=== PATIENT | female | born 1985 | race Caucasian/White ===

== ENCOUNTER → 2018-06-07 14:54 | Outpatient (CLI) | payer OTHER, SELFPAY ==
--- NOTE | 2018-06-07 14:58 | RAD_ITS ---
STUDY: X-RAY CHEST REASON FOR EXAM: Female, 32 years old. Cough. Shortness of breath. TECHNIQUE: Frontal and lateral views of the chest COMPARISON: None. FINDINGS: The lungs are clear. There are no pleural effusions. There is no pneumothorax. The heart is normal in size. The visualized osseous structures are within normal limits. RAD/Chest PA and Lateral IMPRESSION: No acute thoracic pathology. Electronically Signed: Filiberto Leary, at 15:15 EST Tel , Service support ,
== END ==
PROVIDERS: Family Provider Family Medicine; PCP Family Medicine; Referring Provider Family Medicine; Visit Provider Family Medicine
DX: R05 Cough (principal)
CPT/HCPCS: 71046

== ENCOUNTER → 2018-06-27 16:48 | Outpatient (CLI) | payer OTHER, SELFPAY ==
[2017-08-28 13:09] VITALS: BMI 25.3
[2018-06-27 17:45] LABS: Absolute Lymphocyte Count 2.44 X10^3/ul (0.83-4.51); Absolute Neutrophil Count 2.8 X10^3/uL (2.0-7.7); Basophil# 0.04 X10^3/uL; Basophil% 0.7 % (0-1); Eosinophil# 0.11 X10^3/uL; Eosinophils% 1.8 % (0-5); Hematocrit 39.2 % (37-47); Hemoglobin 12.7 g/dl (12.0-15.0); Lymphocyte # 2.44 X10^3/ul (4.0); Lymphocyte % 40.1 % (19-41); Mean Corp Hgb Conc 32.4 g/gl (32-36); Mean Corpuscular Hgb 30.7 pg (27.0-32.0); Mean Corpuscular Volume 94.7 fL (81-99); Mean Platelet Vol. 10.3 fl (6.2-12.0); Monocyte# 0.72 X10^3/uL; Monocyte% 11.8 % (0-10); Neutrophil # 2.76 X10^3/uL (2.7-7.7); Neutrophil % 45.4 % (47-70); Platelet Count 225 K/mm3 (150-450); Red Blood Count 4.14 M/mm3 (4.2-5.4); White Blood Count 6.1 K/mm3 (4.4-11.0)
[2018-06-27 18:00] LABS: POSITIVE COUNT NO; POSITIVE DIFFERENTIAL NO; POSITIVE MORPHOLOGY NO
[2018-06-30 19:48] LABS: ANTINUCLEAR ANTIBODIES DIRECT Positive (Negative)
== END ==
PROVIDERS: Family Provider Family Medicine; PCP Family Medicine; Referring Provider Nurse Practitioner Primary Care; Visit Provider Nurse Practitioner Primary Care
DX: D72.819 Decreased white blood cell count, unspecified (principal)
CPT/HCPCS: 36415; 85025; 86038

== ENCOUNTER 2018-11-29 10:17 | Emergency (ER) | payer OTHER, SELFPAY ==
[2018-10-16 15:30] VITALS: BMI 23.6
[2018-11-29 10:19] VITALS: BP 108/68; PULSE 81; RESP 14; TEMP 36.3; O2SAT 98; BMI 24.7
[2018-11-29] MEDS: Fluorescein 1 MG STRIP 1 STRIP RIGHT EYE (11:06)
--- NOTE | 2018-11-29 11:06 | ED.VISSUMM ---
- ER Visit Summary Date of Service: 11/29/18 Chief Complaint: Right eye injury History of Present Illness: The patient is a 33 F who presents with right eye injury that occurred today while at work. 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 Patient states somebody flushed her eye with 10 cc of normal saline immediately. Patient states she continued to work. Patient states that when the surgical case was over she presented to the emergency department for further evaluation of her eye pain. Patient denies any matting or crusting. Patient denies any visual changes. Patient does not wear glasses or contacts. Physical Examination: Vital signs are stable. Patient is afebrile. Patient is in no acute distress. Pupils are equal, round, and reactive to light bilaterally. Extraocular muscles are intact. There is slight conjunctival injection over the lateral aspect of the right eye. There is no crusting. There is no discharge or drainage. There are no foreign bodies noted. Anterior chamber is clear. Cranial nerves II through XII are intact. There are no focal motor or sensory deficits noted. Test Results: Tetracaine and fluorescein dye was applied. There are no corneal abrasions or corneal ulcers noted under slit-lamp examination. Emergency Department Course and Treatment: Tanvir lens was used to irrigate the right eye with normal saline. Patient was instructed to follow-up with her primary care physician in 3-5 days. Patient was instructed to return if worse in any way. Patient understood and was agreeable with the plan. All questions were answered. Disposition: Discharge home Impression: Chemical conjunctivitis right eye This note was generated with [employer] dictation software. It may contain incorrect words, spelling, and punctuation that were not noted in review of the chart prior to signing ED Disposition - Plan for ED Patient: Disposition: Home or Assisted Living Diagnosis: Chemical conjunctivitis of right eye Instructions: ED Chemical Conjunctivitis Referrals: Filiberto Chambers MD [Primary Care Provider] - 3-5 Days
[2018-11-29] MEDS: Tetracaine 0.5% Ophthalmic Bottle 1 DRP RIGHT EYE (11:07)
== END 2018-11-29 12:00 | disposition home or self-care (01) ==
PROVIDERS: Emergency Provider Emergency Medicine; Family Provider Family Medicine; PCP Family Medicine
DX: H10.211 Acute toxic conjunctivitis, right eye (principal); T49.0X1A Poisoning by local antifungal, anti-infective and anti-inflammatory drugs, accidental (unintentional), initial encounter; Y92.234 Operating room of hospital as the place of occurrence of the external cause; Y99.0 Civilian activity done for income or pay
CPT/HCPCS: 99283; J7030

== ENCOUNTER → 2019-02-26 13:54 | Outpatient (CLI) | payer OTHER, SELFPAY ==
--- NOTE | 2019-02-26 13:57 | BI_ITS ---
MAMMOGRAPHY - BILATERAL DIAGNOSTIC REASON FOR EXAM: Female, 33 years old. Left breast lump. PERTINENT HISTORY: Grandmother with breast cancer. TECHNIQUE: Digital bilateral breast kurtis (3D mammographic acquisition) in the CC and MLO projections. 2-D mediolateral oblique (MLO) and craniocaudad (CC) views of both breasts were obtained. CAD: Full Field Digital Mammography with Computer Added Detection was performed. COMPARISON: None. Baseline examination. FINDINGS: Breast Composition: The breasts are extremely dense, which lowers the sensitivity of mammography. There are no dominant masses or suspicious calcifications. No other significant abnormalities are identified. BI/DIAG MAMM W/CAD, BILAT IMPRESSION: Negative diagnostic mammogram. With the patient's history of a palpable abnormality in the left breast, correlation with ultrasound is recommended. ASSESSMENT CATEGORY: BIRADS Category 0: Incomplete. Need additional imaging evaluation. A letter regarding these results will be sent to the patient by the facility within 30 days. Approximately 10% of breast cancers are not detected by mammography. A normal mammogram should not delay biopsy of a clinically suspicious abnormality. Electronically Signed: Chin Denis, at 15:29 EDT , Service support ,
--- NOTE | 2019-02-26 13:58 | US_ITS ---
STUDY: ULTRASOUND BREAST - LEFT REASON FOR EXAM: Female, 33 years old. Palpable lump left breast. Left breast pain. TECHNIQUE: Axial and longitudinal images of the LEFT breast were performed with a high resolution ultrasound transducer. COMPARISON: Comparison is made with prior mammogram done earlier in the day. FINDINGS: LEFT Breast: The axillary region of the left breast was examined. There is a 1.4 cm x 0.7 cm benign-appearing lymph node. There is also evidence of a small benign-appearing lymph node at the 3:00 position of the breast on 1 cm from the nipple. This measures 5 mm x 7 mm x 4 mm. US/Breast Limited Unilateral IMPRESSION: 2 small benign-appearing lymph nodes as described. ASSESSMENT CATEGORY: BIRADS Category 2: Benign. A letter regarding these results will be sent to the patient by the facility within 30 days. Electronically Signed: Chin Denis, at 8:41 EDT , Service support ,
== END ==
PROVIDERS: Family Provider Family Medicine; PCP Family Medicine; Referring Provider Specialist; Visit Provider Specialist
DX: N63.23 Unspecified lump in the left breast, lower outer quadrant (principal)
CPT/HCPCS: 76642; 77062; 77066; G0279

== ENCOUNTER → 2020-02-19 06:41 | Outpatient (CLI) | payer OTHER, SELFPAY ==
[2020-02-19 07:25] LABS: Absolute Lymphocyte Count 2.74 X10^3/uL (0.83-4.51); Absolute Neutrophil Count 3.4 X10^3/uL (2.0-7.7); Basophil# 0.05 X10^3/uL; Basophil% 0.7 % (0-1); Eosinophil# 0.15 X10^3/uL; Eosinophils% 2.1 % (0-5); Hematocrit 41.3 % (37-47); Hemoglobin 13.6 g/dL (12.0-15.0); Lymphocyte # 2.74 X10^3/ul (4.0); Lymphocyte % 39.2 % (19-41); Mean Corp Hgb Conc 32.9 g/dL (32-36); Mean Corpuscular Hgb 31.3 pg (27.0-32.0); Mean Corpuscular Volume 95.2 fL (81-99); Mean Platelet Vol. 10.5 fl (6.2-12.0); Monocyte# 0.68 X10^3/uL; Monocyte% 9.7 % (0-10); NRBC Flagged by Analyzer 0 % (0-5); Neutrophil # 3.36 X10^3/uL (2.7-7.7); Neutrophil % 48.2 % (47-70); Platelet Count 258 K/mm3 (150-450); RBC Distribution Width CV 11.9 % (11.6-14.6); RBC Distribution Width SD 41.6 fl (35.1-43.9); Red Blood Count 4.34 M/mm3 (4.2-5.4)
[2020-02-19 07:55] LABS: ALB/GLOB Ratio 1.1 RATIO (0.9-2.4); AST(SGOT) 15 U/L (15-37); Alanine Aminotransfer ALT/SGPT 17 U/L (13-56); Albumin, Serum 3.8 g/dL (3.2-5.0); Alkaline Phosphatase 48 U/L (45-117); Anion Gap 3 (5-15); BUN 11 mg/dL (7-18); BUN/Creat Ratio 18.8 RATIO (10-20); Calcium,Total 8.4 mg/dL (8.5-10.1); Chloride 104 mmol/L (98-107); Creatinine, Serum 0.58 mg/dL (0.55-1.02); EST Glomerular Filtration Rate 126 mL/min (>60); Est Glom Filt Rate - Afr Amer 152 mL/min (>60); Globulin 3.6 g/dL (2.2-4.2); Glucose 103 mg/dL (74-106); Lipase 73 U/L (73-393); Potassium 3.6 mmol/L (3.5-5.1); Protein, Total 7.4 g/dL (6.4-8.2); Sodium Level 138 mmol/L (136-145)
== END ==
PROVIDERS: PCP Family Medicine; Referring Provider Surgery; Visit Provider Surgery
DX: R10.9 Unspecified abdominal pain (principal)
CPT/HCPCS: 36415; 80053; 83690; 85025

== ENCOUNTER → 2020-02-28 07:53 | Outpatient (CLI) | payer OTHER, SELFPAY ==
--- NOTE | 2020-02-28 07:54 | US_ITS ---
STUDY: ABDOMINAL ULTRASOUND - RIGHT UPPER QUADRANT REASON FOR VISIT: Female, 34 years old ABD PAIN TECHNIQUE: Ultrasound evaluation of the right upper quadrant was performed with real-time and static nieto-scale imaging. TECHNICAL QUALITY: Adequate. COMPARISON: None. FINDINGS: Liver: The liver measures 15.2 cm. There is normal echogenicity of the liver. The bile ducts are within normal limits. There is hepatic color flow. The direction of portal flow is hepatopetal. There is no demonstrated mass lesion. Gallbladder: Normal distended gallbladder. The gallbladder wall measures 3.0 mm. There is a negative sonographic Chin''s sign. There is no pericholecystic fluid. There are no gallstones. Common Bile Duct (C.B.D.): The common bile duct measures 3.0 mm. Pancreas: Normal size of the head, body and tail of the pancreas. There is normal echogenicity of the pancreas. There is no demonstrated pancreatic mass or cyst. Right Kidney: Normal size of the right kidney. The right kidney measures 12.4 cm x 5.1 cm x 4.8 cm. Normal renal cortex. The right cortex measures 1.7 cm. There is no demonstrated renal mass or cyst. There is no right hydronephrosis. US/Gallbladder IMPRESSION: Normal right upper quadrant ultrasound examination. Electronically Signed: Chin Denis, at 12:41 EDT , Service support ,
== END ==
PROVIDERS: PCP Family Medicine; Referring Provider Surgery; Visit Provider Surgery
DX: R10.9 Unspecified abdominal pain (principal)
CPT/HCPCS: 76705

== ENCOUNTER → 2020-03-11 12:25 | Outpatient (CLI) | payer OTHER, SELFPAY ==
--- NOTE | 2020-03-11 12:26 | NM_ITS ---
CLINICAL: 34-year-old female with reported history of right upper quadrant abdominal pain. RADIONUCLIDE HEPATOBILIARY SCINTIGRAPHY COMPARISON: Abdominal ultrasound report 02/28/2020 FINDINGS: Following the intravenous administration of 5.2 mCi of 99m Tc Mebrofenin, hepatobiliary images reveal: 1. Relatively prompt and homogeneous radiopharmaceutical concentration is noted by a normal sized liver. No parenchymal defects are identified. 2. Gallbladder activity is identified at 15 minutes post radiopharmaceutical administration. 3. Small intestinal tract is not visualized during 60 minutes of pre-CCK sequential imaging. Small bowel activity is identified following the administration of cholecystokinin. 4. Washout of the radiopharmaceutical by the hepatic parenchyma appears qualitatively normal. Cholecystokinin (0.02 ug/kg) was administered intravenously over a 30-minute period. The post CCK gallbladder ejection fraction calculated at 20 minutes following Cholecystokinin administration was noted to be 72.0 % (normal greater than 35%). During 30 minutes of post CCK imaging, there is no scintigraphic evidence of reflux of the radiotracer into the common hepatic duct or refilling of the gallbladder. UT/Hepatobilliary Img w/Pharm Int IMPRESSION: 1. NORMAL 99m Tc Mebrofenin hepatobiliary imaging examination with Cholecystokinin. A. A gallbladder ejection fraction calculated to be greater than 35% following the administration of Cholecystokinin makes the probability of functional hepatobiliary disease (gallbladder and/or sphincter of Oddi dyskinesia) and/or organic hepatobiliary disease (chronic acalculous cholecystitis and/or cystic duct syndrome) to be low. (Michaela Weathers et al, Journal of Nuclear Medicine 32:1695, 1991). Electronically Signed: Alex Núñez DO at 22:35 EDT Tel , Service support ,
== END ==
PROVIDERS: PCP Family Medicine; Referring Provider Surgery; Visit Provider Surgery
DX: R10.11 Right upper quadrant pain (principal)
CPT/HCPCS: 78227; A9537; J2805

== ENCOUNTER 2020-03-26 05:23 | Day surgery (SDC) | payer OTHER, SELFPAY ==
[2020-03-23 05:51] VITALS: BMI 24.4
[2020-03-26] VITALS (8 sets, daily range): BP systolic 81–112; BP diastolic 49–75; PULSE 70–87; RESP 16–18; TEMP 36.5–36.9; O2SAT 95–100; BMI 25.6
[2020-03-26 05:51] LABS: Internal QC Validated? YES +Cl - CLEAR BKGD; Pregnancy, Urine Negative Negative
--- NOTE | 2020-03-26 05:52 | HP.PCM_ITS ---
Problem List (1) Heartburn Status: Acute History and Physical Date of Admission: 03/26/20 Intake Visit Reasons: RUQ PAIN Allergies No Known Allergies Allergy (Verified 03/23/20 07:40) Medications doxycycline hyclate 50 mg tablet 50 mg PO DAILY 03/23/20 [History Confirmed 03/23/20] [facility] Medical History (Updated 03/23/20 @ 08:[address] Juan Jackson MD) Heartburn (Acute) Postprandial abdominal pain in right upper quadrant (Acute) Chronic left shoulder pain (Chronic) of child (Acute) Surgical History (Updated 08/28/17 @ 13:11 by Gabriela Martinez) H/O arthroscopy (Acute) Family History (Updated 03/23/20 @ 07:40 by Melida Gardiner) Grandmother Hypertension Heart disease Diabetes Mother Thyroid disorder Other CVA (cerebral vascular accident) Social History (Updated 03/23/20 @ 08:[address] Juan Jackson MD) Smoking Status: Never smoker alcohol intake: current alcohol intake frequency: a few times a week HPI HPI HPI: CAMILLA WONG, is a 34 F who presents to the office today for surgical evaluation of problems with epigastric pain and postprandial nausea feeling of unwellness bloating burping gas. For longer than a year she has had problems with postprandial discomfort and generalized feeling of unwellness. About 1 year ago she had an episode of a feeling of globus sensation. She took omeprazole for about 2 months and that problem resolved. She is not currently on omeprazole. She does get feeling of indigestion or heartburn. She thought maybe she was lactose intolerant so she quit milk but she still eats yogurt. Red sauce can be a problem for her. Because of the epigastric right upper quadrant nature of the discomfort a gallbladder ultrasound was obtained. As noted below that was normal. A hepatobiliary scan was obtained with an ejection fraction of 72%. It is of note however that the patient did experience nausea after injection of the CCK. There is no fever or chills there is no shortness of breath no chest pain no nausea vomiting. The patient will intermittently have some loose stools depending on upon what she eats. She did have laboratory obtained on February 19, 2020. CBC was normal. Complete metabolic profile was normal. Lipase was normal. She does consume significant amount of Tums. She utilizes it weekly. This is for heartburn and reflux-like symptoms. She states that used to be pretty consistent and relieve her problems. Now less so. 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 However her symptoms started well before the ini tiation of the doxycycline and she has not noticed any particular acceleration since its use Gall Bladder Ultrasound [facility] [address] [place] [address] Gallbladder MR#: [id number] Name: CAMILLA WONG #:[id number] : 1985F 34 From: Chin Denis MD PCP:Dr. Filiberto Chambers MD Status:REG CLI Study:Gallbladder Date of Exam:02/28/20 Exam#[id number] Ordering Dr: Juan Jackson MD STUDY: ABDOMINAL ULTRASOUND - RIGHT UPPER QUADRANT REASON FOR VISIT: Female, 34 years old ABD PAIN TECHNIQUE: Ultrasound evaluation of the right upper quadrant was performed with real-time and static nieto-scale imaging. TECHNICAL QUALITY: Adequate. COMPARISON: None. FINDINGS: Liver: The liver measures 15.2 cm. There is normal echogenicity of the liver. The bile ducts are within normal limits. There is hepatic color flow. The direction of portal flow is hepatopetal. There is no demonstrated mass lesion. Gallbladder: Normal distended gallbladder. The gallbladder wall measures 3.0 mm. There is a negative sonographic Chin''s sign. There is no pericholecystic fluid. There are no gallstones. Common Bile Duct (C.B.D.): The common bile duct measures 3.0 mm. Pancreas: Normal size of the head, body and tail of the pancreas. There is normal echogenicity of the pancreas. There is no demonstrated pancreatic mass or cyst. Right Kidney: Normal size of the right kidney. The right kidney measures 12.4 cm x 5.1 cm x 4.8 cm. Normal renal cortex. The right cortex measures 1.7 cm. There is no demonstrated renal mass or cyst. There is no right hydronephrosis. US/Gallbladder IMPRESSION: Normal right upper quadrant ultrasound examination. Electronically Signed: Chin Denis, at 12:41 EDT , Service support , [facility] [address] [place] [id number] Hepatobilliary Img w/Pharm Int MR#: [id number] Name: CAMILLA WONG #:[id number] : 1985F 34 From: Alex Núñez DO PCP:Dr. Filiberto Chambers MD Status:[facility] CLI Study:Hepatobilliary Img w/Pharm Int Date of Exam:03/11/20 Exam#[id number] Ordering Dr: Juan Jackson MD CLINICAL: 34-year-old female with reported history of right upper quadrant abdominal pain. RADIONUCLIDE HEPATOBILIARY SCINTIGRAPHY COMPARISON: Abdominal ultrasound report 02/28/2020 FINDINGS: Following the intravenous administration of 5.2 mCi of 99m Tc Mebrofenin, hepatobiliary images reveal: 1. Relatively prompt and homogeneous radiopharmaceutical concentration is noted by a normal sized liver. No parenchymal defects are identified. 2. Gallbladder activity is identified at 15 minutes post radiopharmaceutical administration. 3. Small intestinal tract is not visualized during 60 minutes of pre-CCK sequential imaging. Small bowel activity is identified following the administration of cholecystokinin. 4. Washout of the radiopharmaceutical by the hepatic parenchyma appears qualitatively normal. Cholecystokinin (0.02 ug/kg) was administered intravenously over a 30-minute period. The post CCK gallbladder ejection fraction calculated at 20 minutes following Cholecystokinin administration was noted to be 72.0 % (normal greater than 35%). During 30 minutes of post CCK imaging, there is no scintigraphic evidence of reflux of the radiotracer into the common hepatic duct or refilling of the gallbladder. NM/Hepatobilliary Img w/Pharm Int IMPRESSION: 1. NORMAL 99m Tc Mebrofenin hepatobiliary imaging examination with Cholecystokinin. A. A gallbladder ejection fraction calculated to be greater than 35% following the administration of Cholecystokinin makes the probability of functional hepatobiliary disease (gallbladder and/or sphincter of Oddi dyskinesia) and/or organic hepatobiliary disease (chronic acalculous cholecystitis and/or cystic duct syndrome) to be low. (Michaela Weathers et al, Journal of Nuclear Medicine 32:1695, 1990). Electronically Signed: Alex DO [place] at 22:35 EDT Tel , Service support , HPI HPI HPI: CAMILLA WONG, is a 34 F who presents to the office today for Exam Const General: cooperative, healthy appearing, comfortable Nutritional Appearance: average body habitus Orientation: alert, awake HENMT Head: normal to inspection Eyes General: appearance normal, both eyes and all related structures Resp Effort & Inspection: normal respiratory effort Auscultation: clear to auscultation bilaterally Cardio Rate: regular rate Rhythm: regular rhythm GI Palpation: soft, no hepatosplenomegaly Auscultation: normal bowel sounds Musc Cervical Spine: normal cervical lordosis Neuro General: alert, awake Extrem General: no calf tenderness Psych Affect: normal affect Assessment & Plan Problems 1. Postprandial abdominal pain in right upper quadrant R10.11 2. Heartburn R12 Plan Postprandial abdominal pain and heartburn of undetermined etiology. As noted gallbladder ultrasound and hepatobiliary scan not remarkable and laboratory not remarkable. Some improvement with using Tums. I recommend a esophagogastroduodenoscopy with biopsy. I anticipate sampling the duodenum loo rick for possible celiac disease. I would anticipate inspecting for possible H. pylori and also eosinophilic esophagitis. She is aware of the technique, benefit, risk, alternatives. She has had an opportunity to ask and have questions answered. We will schedule and proceed at her discretion. I very much appreciate the opportunity of assisting with her surgical care. Copy: Dr. Filiberto Jackson M.D., F.A.C.S. Orders Orders: EGD Today Coding Level of Care Code Off vis,new,level 2 Diagnoses Postprandial abdominal pain in right upper quadrant R10.11 Heartburn R12 I have re-examined the patient. There are no clinical changes since date of exam. Procedure Criteria Procedure Type: Elective COVID Risk Discussion: The surgeon/proceduralist and patient have discussed in detail the risk of exposure to and/or potential harm posed by the COVID-19 virus with having a surgery/procedure at this time versus the risk of delaying the surgery/procedure. It is not possible to know either the risk of delaying the surgery or procedure or chance of getting an infection with perfect accuracy, but a joint decision was made between the patient and the surgeon/proceduralist to proceed at this time with the scheduled surgery/procedure as indicated on the consent form.
[2020-03-26] MEDS: Lactated Ringers 1,000 ML 75 ML IV (06:13)
--- NOTE | 2020-03-26 06:30 | IMM_PTH ---
PATIENT: CAMILLA GARCIA LOC: EN U#:[id number] AGE/SX: 34/F ROOM: RE03/26/[address]: Dr. Juan Jackson MD : 1985 BED: DIS: 03/26/2020 SPEC #: [id number] RECD: 03/26/20 10:17 STATUS: LIZZIE ELEONORA #: [id number] ROSHNI: 03/26/20 06:[address]: Juan Jackson DEPT: IMMUNOHISTOCHEMISTRY RECD BY: Izzy Tucker ENTERED: 03/26/20 10:17 SP TYPE: IMMUNO OTHR DR: Dr. Filiberto Chambers MD Tissues: B - Stomach, NOS Procedures: H Pylori (initial) PHYSICIAN & INSTITUTION [place] [address] SPECIMEN INFORMATION: Tissue Source: B - Antrum biopsy Clinical Info: RUQ pain, heartburn Specimen Number: [id number] CPT code: 25977 METHODOLOGY: Deparaffinized sections of prefer/formalin-fixed tissue or PAP/DQ stained slides are incubated with monoclonal/polyclonal antibodies/oligonucleotide probes. Localization is made via biotin free immunoperoxidase method. Appropriate controls are performed and reacted as expected. Results on target cell population are indicated in the following table: RESULTS: ANTIBODY / CLONE RESULT Block B H Pylori (polyclonal) negative These tests were developed and their performance characteristics determined by [facility]. They may not have been cleared or approved by the U.S. Food and Drug Administration. The FDA has determined that such clearance or approval is not necessary. INTERPRETATION: B. Antrum, biopsy: Negative for Helicobacter pylori organisms. SJ:abdiaziz 03/27/20
--- NOTE | 2020-03-26 06:30 | COLBX_PTH ---
PATIENT: CAMILLA GARCIA LOC: EN U#:[id number] AGE/SX: 34/F ROOM: RE03/26/[address]: Dr. Juan Jackson MD : 1985 BED: DIS: 03/26/2020 SPEC #: [id number] RECD: 03/26/20 08:46 STATUS: LIZZIE CREWS #: [id number] ROSHNI: 03/26/20 06:[address]: Juan Jackson DEPT: SURGICAL PATHOLOGY RECD BY: Carlos Alberto Hayward ENTERED: 03/26/20 09:45 SP TYPE: COLON BX OTHR DR: Dr. Filiberto Chambers MD Tissues: A - Duodenum, NOS B - Gastric mucous membrane C - Esophagus, NOS D - Esophagus, NOS Procedures: Special Stain Group II Surgery Specimen Level IV Alcian Blue/PAS (control) HEADER OPERATION: EGD ([facility]) PRE-OP DIAGNOSIS: RUQ pain, heartburn TISSUE SUBMITTED: A - Duodenum biopsy, B - Antrum biopsy for histo and H. pylori, C - Distal esophagus biopsy, D - Mid esophagus biopsy MICROSCOPIC DIAGNOSIS A. Duodenum, biopsy: Fragments of duodenal mucosa with mild nonspecific chronic inflammation and mild Juwan gland hyperplasia. B. Antrum, biopsy: Mild gastritis. See microscopic description and comment. C. Distal esophagus, biopsy: Fragments of gastroesophageal mucosa with mild chronic inflammation. Intestinal metaplasia (goblet cell metaplasia) is not identified. See comment. D. Mid esophagus, biopsy: A fragment of squamous epithelium, no pathologic diagnosis. SJ:abdiaziz 03/27/20 COMMENT B. The results of immunohistochemistry for Helicobacter pylori will be reported separately ([id number]). C. Alcian blue/PAS stain with matched control is used in the evaluation of the specimen. MICROSCOPIC DESCRIPTION Slides are reviewed. B. The specimen shows fragments of gastric mucosa with chronic inflammatory cell infiltrates in the lamina propria consisting of lymphocytes and plasma cells, consistent with mild chronic gastritis. GROSS DESCRIPTION A - Received in fixative is one container labeled with the patient's name and designated duodenum biopsy. The specimen consists of multiple irregular fragments of light tovar soft tissue that in aggregate measure 1 x 0.6 x 0.1 cm. The specimen is totally submitted in one cassette. B - Received in fixative is one container labeled with the patient's name and designated antrum biopsy. The specimen consists of one irregular fragment of light tovar soft tissue that measures 0.3 x 0.3 x 0.1 cm. The specimen is totally submitted in one cassette. C - Received in fixative is one container labeled with the patient's name and designated distal esophagus biopsy. The specimen consists of two irregular fragments of light tovar soft tissue that in aggregate measure 0.5 x 0.3 x 0.1 cm. The specimen is totally submitted in one cassette. D - Received in fixative is one container labeled with the patient's name and designated mid esophagus biopsy. The specimen consists of one irregular fragment of light tovar soft tissue that measures 0.7 x 0.3 x <0.1 cm. The specimen is totally submitted in one cassette. / AM:abdiaziz 03/26/20 TC:3 CPT: 41928 x4, [id number]
--- NOTE | 2020-03-26 06:49 | OP.CCLET_ITS ---
03/26/2020 Filiberto Chambers Re : Upper GI endoscopy procedure for Nithya Nguyễn Dear Reyes This procedure was performed on March. My impressions and recommendations are as follows: Impressions : - Z-line variable, 39 cm from the incisors.Very mininimal esophagitis Biopsied. - Normal mid esophagus. Biopsied. - 1 cm hiatal hernia. - Erythematous mucosa in the antrum--very, very mild. Biopsied. - Normal examined duodenum. Biopsied. Recommendations : - Discharge patient to home. - Resume previous diet. - Continue present medications. - Telephone my office for pathology results in 1 week. Small hiatal hernia, slight variability of Z-line (esophagogastric junction); No overwhelming findings. Will alwait pathology. Consider repeat PPI or possibly Dexilant therapy My findings are described in the full procedure note, which is enclosed. If I can be of further assistance, please feel free to contact me at Doctor phone number(s): Work: . Sincerely, Juan Jackson MD 03/26/2020 6:49:04 AM This report has been signed electronically.
--- NOTE | 2020-03-26 06:49 | OP.EGD_ITS ---
Patient Name: Nithya Nguyễn Procedure Date: 03/26/2020 6:10 AM Date of : 1985 Age: 34 Procedure: Upper GI endoscopy Indications: Epigastric abdominal pain, Heartburn Providers: Juan Jackson MD Referring MD: Filiberto Chambers Medicines: See the Anesthesia note for documentation of the administered medications Complications: No immediate complications. Procedure: Pre-Anesthesia Assessment: - Prior to the procedure, a History and Physical was performed, and patient medications and allergies were reviewed. The patient's tolerance of previous anesthesia was also reviewed. The risks and benefits of the procedure and the sedation options and risks were discussed with the patient. All questions were answered, and informed consent was obtained. Prior Anticoagulants: The patient has taken no previous anticoagulant or antiplatelet agents. ASA Grade Assessment: I - A normal, healthy patient. After reviewing the risks and benefits, the patient was deemed in satisfactory condition to undergo the procedure. After obtaining informed consent, the endoscope was passed under direct vision. Throughout the procedure, the patient's blood pressure, pulse, and oxygen saturations were monitored continuously. The Endoscope was introduced through the mouth, and advanced to the second part of duodenum. The upper GI endoscopy was accomplished without difficulty. The patient tolerated the procedure well. Scope In: 6:32:45 AM Scope Out: 6:40:02 AM Total Procedure Duration Time 0 hours 7 minutes 17 seconds Findings: The Z-line was variable and was found 39 cm from the incisors. Biopsies were taken with a cold forceps for histology. The mid esophagus was normal. Biopsies were taken with a cold forceps for histology. A 1 cm hiatal hernia was present. Diffuse mildly erythematous mucosa without bleeding was found in the gastric antrum. Biopsies were taken with a cold forceps for histology. The examined duodenum was normal. Biopsies were taken with a cold forceps for histology. Impression: - Z-line variable, 39 cm from the incisors.Very mininimal esophagitis Biopsied. - Normal mid esophagus. Biopsied. - 1 cm hiatal hernia. - Erythematous mucosa in the antrum--very, very mild. Biopsied. - Normal examined duodenum. Biopsied. Recommendation: - Discharge patient to home. - Resume previous diet. - Continue present medications. - Telephone my office for pathology results in 1 week. Small hiatal hernia, slight variability of Z-line (esophagogastric junction); No overwhelming findings. Will alwait pathology. Consider repeat PPI or possibly Dexilant therapy Procedure Code(s): --- Professional --- 16343, Esophagogastroduodenoscopy, flexible, transoral; with biopsy, single or multiple Diagnosis Code(s): --- Professional --- K22.8, Other specified diseases of esophagus K44.9, Diaphragmatic hernia without obstruction or gangrene K31.89, Other diseases of stomach and duodenum R10.13, Epigastric pain R12, Heartburn CPT copyright 2017 [employer]. All rights reserved. The codes documented in this report are preliminary and upon pilot plant research technician review may be revised to meet current compliance requirements. Juan Jackson MD 03/26/2020 6:49:04 AM This report has been signed electronically. Number of Addenda: 0 Note Initiated On: 03/26/2020 6:10 AM
== END 2020-03-26 07:45 | disposition home or self-care (01) ==
LOC: EN 05:23 → AC 05:23
PROVIDERS: Anesthesiology; PCP Family Medicine; Referring Provider Family Medicine; Visit Provider Surgery
PROC: 0DJ08ZZ Inspection of Upper Intestinal Tract, Via Natural or Artificial Opening Endoscopic (ICD-10-PCS; CPT 43235; principal; 2020-03-26 06:25)
DX: K29.70 Gastritis, unspecified, without bleeding (principal); K20.90 Esophagitis, unspecified without bleeding; K44.9 Diaphragmatic hernia without obstruction or gangrene; Z11.59 Encounter for screening for other viral diseases
CPT/HCPCS: 43239; 81025; 87635; 88305; 88313; 88342; C9803; J7120; J2405; U0003

== ENCOUNTER → 2021-01-05 | Outpatient (CLI) | payer OTHER, SELFPAY ==
[2020-03-26 05:47] VITALS: BMI 25.6
== END | disposition home or self-care (01) ==
PROVIDERS: PCP Family Medicine
DX: R19.7 Diarrhea, unspecified (principal)
CPT/HCPCS: 83630; 87493; 87506

== ENCOUNTER → 2021-01-08 06:41 | Outpatient (CLI) | payer OTHER, SELFPAY ==
[2021-01-07 12:11] VITALS: BMI 25.6
[2021-01-08 08:03] LABS: ALB/GLOB Ratio 1.1 RATIO (0.9-2.4); AST(SGOT) 19 U/L (15-37); Alanine Aminotransfer ALT/SGPT 26 U/L (13-56); Albumin, Serum 3.7 g/dL (3.2-5.0); Alkaline Phosphatase 40 U/L (45-117); Anion Gap 8 (5-15); BUN 10 mg/dL (7-18); BUN/Creat Ratio 16.3 RATIO (10-20); Calcium,Total 8.3 mg/dL (8.5-10.1); Chloride 104 mmol/L (98-107); Creatinine, Serum 0.61 mg/dL (0.55-1.02); EST Glomerular Filtration Rate 119 mL/min (>60); Est Glom Filt Rate - Afr Amer 143 mL/min (>60); Globulin 3.3 g/dL (2.2-4.2); Glucose 92 mg/dL (74-106); Lipase 56 U/L (73-393); Sodium Level 138 mmol/L (136-145)
[2021-01-08 08:08] LABS: Hematocrit 40.9 % (37-47); Hemoglobin 13.7 g/dL (12.0-15.0); Red Blood Count 4.46 M/mm3 (4.2-5.4); White Blood Count 5.9 K/mm3 (4.4-11.0)
[2021-01-08 08:09] LABS: Basophil% 0.9 % (0-1); Eosinophils% 1.7 % (0-5); Lymphocyte % 35.4 % (19-41); Mean Corp Hgb Conc 33.5 g/dL (32-36); Mean Corpuscular Hgb 30.7 pg (27.0-32.0); Mean Corpuscular Volume 91.7 fL (81-99); Mean Platelet Vol. 10.2 fl (6.2-12.0); Monocyte% 13.3 % (0-10); Neutrophil % 48.7 % (47-70); Platelet Count 257 K/mm3 (150-450); RBC Distribution Width CV 12.2 % (11.6-14.6); RBC Distribution Width SD 41.2 fl (35.1-43.9)
[2021-01-08 08:10] LABS: Absolute Lymphocyte Count 2.07 X10^3/uL (0.83-4.51); Absolute Neutrophil Count 2.9 X10^3/uL (2.0-7.7); Lymphocyte # 2.07 X10^3/ul (0.83-4.51)
[2021-01-10 16:07] LABS: Endomysial Antibody IgA Negative (Negative)
[2021-01-11 07:25] LABS: Immunoglobulin A 144 mg/dL (87-352); t-Transglutaminase IgA <2 U/mL (0-3)
[2021-01-12 21:27] LABS: Fats, Neutral Normal (.); Fats, Total Normal (.)
== END ==
PROVIDERS: PCP Family Medicine; Referring Provider Surgery; Visit Provider Surgery
DX: R19.7 Diarrhea, unspecified (principal)
CPT/HCPCS: 36415; 80053; 82705; 82784; 83516; 83690; 85025; 86255

== ENCOUNTER → 2021-03-31 | Outpatient (CLI) | payer OTHER, SELFPAY ==
[2021-03-31 21:31] LABS: Probe Check PASS; Specimen Processing Control PASS
== END | disposition home or self-care (01) ==
PROVIDERS: PCP Family Medicine; Referring Provider Internal Medicine Infectious Disease; Visit Provider Internal Medicine Infectious Disease
DX: U07.1 COVID-19 (principal)
CPT/HCPCS: 87635; U0005; U0003

== ENCOUNTER 2021-06-02 10:00 | Outpatient (RCR) | payer OTHER, SELFPAY | END 2021-06-02 19:00 | disposition home or self-care (01) | LOC: PT 10:00 | PROVIDERS: PCP Family Medicine | DX: R69 Illness, unspecified (principal) ==

== ENCOUNTER 2021-06-14 15:15 | Outpatient (RCR) | payer OTHER, SELFPAY ==
[2020-03-26 05:47] VITALS: BMI 25.6
--- NOTE | 2020-07-09 08:00 | MASS.EVAL ---
Massage Therapy Evaluation: Initial Evaluation Date: 07/07/2020 /Age: 05 1985, 34 Diagnosis: Muscle spasm Goals: Decrease muscle tension Improve posture Assessment: Nithya is a good candidate for massage at this time. SHe responded well to her first treatment. Plan: To be seen one time per month or PRN for a total of 10 one hour sessions.
--- NOTE | 2021-06-14 16:15 | MASS.DISCH ---
Massage Therapy Discharge Summary: Discharge Date: 06/14/2021 Nithya was seen for a massotherapy evaluation on 07/07/2020 with the diagnosis of upper back pain. She was treated with ten sessions of massage therapy consisting of deep pressure soft tissue techniques, myofascial release and trigger point compression to her cervical and thoracic area. Nithya responded well to the therapy by reporting decreased tension and pain throughout her neck and shoulders. At this time this patient is being discharged from our care at [facility] facility.
== END 2021-06-14 19:00 | disposition home or self-care (01) ==
LOC: MASS 15:15
PROVIDERS: PCP Family Medicine; Referring Provider Family Medicine; Visit Provider Family Medicine
DX: M62.838 Other muscle spasm (principal); M62.830 Muscle spasm of back
CPT/HCPCS: 97124

== ENCOUNTER 2021-09-03 14:12 | Outpatient (CLI) | payer OTHER, SELFPAY ==
--- NOTE | 2021-09-03 14:17 | RAD_ITS ---
EXAM: XR CERVICAL SPINE, 2 OR 3 VIEWS CLINICAL INDICATION: CHRONIC NECK PAIN TECHNIQUE: Frontal and lateral views of the cervical spine. This report was created using [employer] report XING technology. COMPARISON: None. FINDINGS: VERTEBRAE: The odontoid process is obscured by the overlying hard palate on the open mouth view. Therefore, it is not fully evaluated by plain film. Preserved vertebral body height. No acute fracture. No spondylolisthesis. Preservation of the normal cervical lordosis. No significant facet arthropathy. DISC SPACES: Unremarkable. Disc spaces are maintained. SOFT TISSUES: Unremarkable. No prevertebral soft tissue widening. LUNG APICES: Clear. RAD/Cerv Spine 2 or 3 Views IMPRESSION: The odontoid process is obscured by the overlying hard palate on the open mouth view. Therefore, it is not fully evaluated by plain film. Electronically Signed: Pio Mills MD at 20:29 EDT Reading Location ID and State: [facility] / [place] , Service support ,
== END 2021-09-03 23:59 | disposition home or self-care (01) ==
PROVIDERS: PCP Family Medicine; Referring Provider Family Medicine; Visit Provider Family Medicine
DX: M54.2 Cervicalgia (principal); G89.29 Other chronic pain
CPT/HCPCS: 72040

== ENCOUNTER → 2021-12-22 | Outpatient (CLI) | payer OTHER, SELFPAY | END | disposition home or self-care (01) | LOC: LABSPEC 10:20 | PROVIDERS: PCP Family Medicine; Visit Provider Physician Assistant | DX: J02.9 Acute pharyngitis, unspecified (principal) | CPT/HCPCS: 87070 ==

== ENCOUNTER 2022-12-22 15:30 | Outpatient (RCR) | payer OTHER, SELFPAY ==
--- NOTE | 2022-11-22 13:54 | HP.PTEVAL_ITS ---
Patient's Visit Information CAMILLA WONG is a 37 year old F referred to Physical Therapy by Dr. Adrian Clemente DO with a diagnosis of L thoracic pain. Date of Evaluation: 11/09/22 Physical Therapist: Mckay Mason DPT - Visit Plan Frequency: 2x /Week Duration: 6 Weeks Plan: Start with DN to L UT, L levator scapulae and L mid trap. Add in postural strengthening. May trial DFM to same areas for home use. - Subjective Pt. is here today for her initial evaluation with diagnosis of L thoracic pain. Pt. reports having pain for years. NO mech of injury, but thinks her job might have something to do with it. 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 Pt. does have some issues with sleeping. arm goes numb while sleeping on her L side. Pt. also has increased issues with driving and with hold her arm up. Pt. reports no HAs. Pt. has had some relief with DN and massage in the past. She does not exercise much, but has thought about starting again. She is hopeful to reduce symptoms in order to complete all work and ADls without increase in symptoms. - Pain L scapular region Pain Intensity (Out of 10): 4 Pain Intensity Range: 2, 8 - Objective POSTURE: Pt. has slight FH posture, slight increase in thoracic kyphosis. Pt. is able to correct with VC/TCing. PALPATION: Pt. is very tender throughout L levator scapulae and L UT. Pt has pain with spring testing throughout thoracic spine. No radicular symptoms noted. No pain with palpation throughout ribs either. NEURO: normal DTR and sensation throughout BUEs. ROM: Pt. has normal B shoulder ROM. Mild increase in symptoms at end range flexion (potentially from thoracic extension at this range). Mild tenderness with thoracic rotation to R side. MMT: 5/5 throughout BUEs. CERVICAL SPINE: 5/5 throughout. Periscapular 4/5 throughout. - Balance/Special Test Scores Oswestry Neck Score: 14 - Goals Goal 1:: LTG: Pt. to be I with HEP. Goal Time Frame: 4-6 Weeks Goal 2:: STG: Pt. to sleep throughout the night without increase in tingling in LUE. Goal Time Frame: 2 Weeks Goal 3:: LTG: Pt. to have no issues with all work and recreational activities. Goal Time Frame: 4-6 Weeks Goal 4:: LTG: pt. demonstrate good postural endurance throughout therapy session. Goal Time Frame: 4-6 Weeks - Rehabilitation Potential Physical Therapy Diagnosis: Pt. has signs and symptoms consistent with L levator scapulae, L mid trapezius pain. pt. Rehabilitation Potential: Good - Anticipated Interventions Patient/Client Instruction: Educate patient on: Condition, Plan of Care, Risk Factors, Benefits of Fitness Program For the Purpose of:: To foster healthy habits, To improve decision making, To facilitate caregiver knowledge, To improve self management, To prevent re- injury, To improve ability to perform tasks related to life management Therapeutic Exercise to Include: Strength training, Power training, Postural training, Flexibilty training, Passive ROM, Active ROM, Scapular Strength/Stabilization For the Purpose of:: To decrease pain, To increase ROM, To improve nutrient delivery to tissue, To increase oxygenation perfusion, To improve muscle performance and motor function, To improve ability to perform ADL's, To decrease soft tissue restriction, To increase flexibility/ROM Manual Therapy Techniques to Include: Mobilization, Manipulation, Functional dry needling, Soft tissue mobilization For the Purpose of:: To decrease pain, To increase ROM, To increase oxygenation perfusion, To improve muscle performance and motor function, To decrease soft tissue restriction, To increase flexibility/ROM Ultrasound (thermal/non thermal): Yes For the Purpose of:: To decrease pain, To increase ROM, To improve nutrient delivery to tissue, To improve muscle performance and motor function Thank you for the opportunity to evaluate your patient. For Medicare and Medicare HMO plans, please review the plan of care and approve it. It will need to be FAXED BACK to us at [phone] for Medicare purposes. For Medicare only, by signing this I certify the plan of care. Please let me know if there are questions or concerns regarding this plan of care. Physician Signature: Date:
--- NOTE | 2023-01-05 07:32 | HP.PTDCSUM ---
Discharge Summary D/C summary: It has been my pleasure to treat CAMILLA GARCIA referred by Dr. Adrian Clemente DO, with the diagnosis of L thoracic pain for a total of 7 visit(s). Discharge Date: 12/22/22 Please see the following information for a summary of their discharge status. Subjective Subjective: Pt. reports overall not much change. She has some relief with DN, but temporarily. Pt. is now having B UE go numb upto x3 per night. Pt. still has the pain at her L shoulder blade region. She is tight through bilateral scalenes and SCM as well. Pain L scapular region: Pain Intensity (Out of 10): 3 Objective Objective/Function: Pt. has good strength throughout BUEs, some weakness with her periscapular musculature, but not severe. Pt. does have some signs of possible TOS. this does not fit perfectly unto her symptoms, but there are some signs. ROM: Pt. has close to full ROM of her cervical spine, pain with L rotation, but more of a tightness than a pain. At this point in time I would suggest that she return to her physician to determine best course of action. Pt. consents. Goals Goal 1:: LTG: Pt. to be I with HEP. Goal Progress: Goal Met Goal 2:: STG: Pt. to sleep throughout the night without increase in tingling in LUE. Goal Progress: Not Progressing Goal 3:: LTG: Pt. to have no issues with all work and recreational activities. Goal Progress: Not Progressing Goal 4:: LTG: pt. demonstrate good postural endurance throughout therapy session. Goal Progress: Progressing Plan Plan: DC to HEP and to follow up with physician to determine best course of action. D/C Information Discharge Comments: Pt. was treated with manual, stretching, DN, mobilization and strengthening. She has not made great progress with her symptoms. When she had time off work she did better, symptoms resumed with returning to work. B UE are going numb at night pretty frequently. I would like her to follow up with physician about this. Pt. to be DC from PT at this point in time and instructed to follow back up with physician. d/c sentence: If there are questions or concerns regarding this patient's physical therapy, please feel free to call me at [phone]. Thank you for the referral of this patient. Sincerely, Mckay Mason, DPT Balance/Gait/Functional tests Balance/Special Test Scores Oswestry Neck Score: 13
== END 2022-12-22 19:00 | disposition home or self-care (01) ==
LOC: PT 15:30
PROVIDERS: PCP Family Medicine; Referring Provider Family Medicine; Visit Provider Family Medicine
DX: M54.6 Pain in thoracic spine (principal); G89.29 Other chronic pain
CPT/HCPCS: 97110; 97140; 97161; 97164

== ENCOUNTER → 2023-03-08 | Outpatient (CLI) | payer OTHER, SELFPAY ==
--- NOTE | 2023-03-08 12:54 | NEURO ---
NCS and/or EMG Patient Report Ordering Doctor: Phi Garcia DATE OF SERVICE: 03/08/23 Nithya presents for electrodiagnostic testing of the left upper limb. She reports numbness and tingling in the left arm and pain radiating from her neck into the arm. Electrodiagnostic findings: Left median motor nerve demonstrates normal distal latency, amplitude and conduction velocity. Left ulnar motor response is within normal limits, including conduction across the elbow. Normal left median ulnar F-wave. Sensory responses are within normal limits. Needle EMG testing was performed in the left upper limb. 1+ fibrillations are noted in the left triceps, left flexor carpi ulnaris and left lower cervical paraspinals. Motor unit action potentials with normal amplitude and duration. Electrodiagnostic impression: This is an abnormal study in the left upper limb. 1. Electrodiagnostic findings suggestive of acute left C7 radiculopathy. Consider clinical correlation with cervical spine MRI 2. There is no electrodiagnostic evidence for carpal tunnel or cubital tunnel syndrome. Multi Select Codes Neurology Neurology Interp Codes: 25939-14 Musc test done w/n test comp (interp) and 24450-29 Nrv cndj test 7-8 studies (interp)
== END | disposition home or self-care (01) ==
LOC: PSN 10:41
PROVIDERS: PCP Family Medicine; Referring Provider Physician Assistant; Visit Provider Physician Assistant
DX: M54.12 Radiculopathy, cervical region (principal); M54.2 Cervicalgia
CPT/HCPCS: 95886; 95910

== ENCOUNTER → 2023-03-24 | Outpatient (CLI) | payer OTHER, SELFPAY ==
--- NOTE | 2023-03-24 06:46 | MRI_ITS ---
INDICATION: pain/NUMBNESS/TINGLING L SHOULDER INTO ARM X 10 YEARS EXAMINATION: MRI - MR Spine Cervical W/O Contrast TECHNIQUE: Multiplanar and multisequence MR images of the cervical spine were performed. IV Contrast Dosage and Agent: None. COMPARISON: None. FINDINGS: VERTEBRAE: No acute fracture or pathologic marrow replacement. VERTEBRAL ALIGNMENT: Normal, including the craniocervical junction and cervicothoracic junction. No spondylolisthesis. There is preservation of the normal cervical lordosis. CERVICAL SPINAL CORD: Unremarkable in signal and morphology. C2/C3: Normal disc height and morphology. Normal spinal canal and neuroforamina. C3/C4: Normal disc height and morphology. Normal spinal canal and neuroforamina. C4/C5: Normal disc height and morphology. Normal spinal canal and neuroforamina. C5/C6: Normal disc height and morphology. Normal spinal canal and neuroforamina. C6/C7: Normal disc height and morphology. Normal spinal canal and neuroforamina. C7/T1: Normal disc height and morphology. Normal spinal canal and neuroforamina. NECK SOFT TISSUES: No prevertebral soft tissue swelling. There is no cervical adenopathy. MRI/Spine Cervical (Routine) IMPRESSION: Unremarkable MRI of the cervical spine. Electronically Signed: Jonatan Almaguer MD at 19:09 EDT ,
== END | disposition home or self-care (01) ==
LOC: MRI 06:25
PROVIDERS: PCP Family Medicine; Referring Provider Physician Assistant; Visit Provider Physician Assistant
DX: M54.12 Radiculopathy, cervical region (principal)
CPT/HCPCS: 72141

== ENCOUNTER → 2024-11-06 | Outpatient (CLI) | payer OTHER, SELFPAY ==
--- NOTE | 2024-11-06 07:56 | VDLE_ITS ---
Reason For Study Reason For Study: Bilateral leg pain RIGHT LEFT CFV is compressible, spontaneous, phasic, competent CFV is compressible, spontaneous, phasic, competent, and demonstrates normal augmentation. and demonstrates normal augmentation. FV is compressible, spontaneous, phasic, competent FV is compressible, spontaneous, phasic, competent and demonstrates normal augmentation. and demonstrates normal augmentation. POP V is compressible, spontaneous, phasic, competent POP V is compressible, spontaneous, phasic, competent and demonstrates normal augmentation. and demonstrates normal augmentation. T/P Trunk is compressible. T/P Trunk is compressible. PTV is compressible. PTV is compressible. RT PerV is compressible. LT PerV is compressible. SFJ is INCOMPETENT and measures 0.76 cm. SFJ is INCOMPETENT and measures 0.62 cm. GSV proximal thigh measures 0.39 x 0.37 cm. GSV proximal thigh measures 0.45 x 0.47 cm. GSV at knee measures 0.33 x 0.34 cm. GSV at knee measures 0.34 x 0.33 cm. GSV is competent throughout. GSV INCOMPETENT throughout for greater than 0.5 SSV mid calf is competent and measures 0.11 x 0.10 seconds. cm. SSV mid calf is competent and measures 0.10 x 0.11 Procedure cm. This is a venous duplex using B-mode, color flow and Cluster of small varicose veins noted at the proximal spectral Doppler. lucas, unable to visualize origin. Exam performed in department. Patient was scanned in reverse Trendelenburg position during reflux assessment. VL/Venous Duplex US - Jamil Extrem Interpretation Summary Deep veins of the bilateral lower extremities are patent and compressible segme ntally. There is no evidence of bilateral lower extremity deep vein thrombosis. The bilateral great saphenous veins appea r patent and compressible segmentally. Positive for reflux in the right saphenofemoral junction. Positive for reflux in the left saphenofemoral junction, great saphenous vein t hroughout. Ordering Physician: Jessica Mann Referring Physician: Filiberto Chambers Performed By: Dinorah Bangura RVT
== END | disposition home or self-care (01) ==
LOC: CVS 07:55
PROVIDERS: PCP Family Medicine; Referring Provider Physician Assistant; Visit Provider Physician Assistant
DX: I87.2 Venous insufficiency (chronic) (peripheral) (principal); I83.899 Varicose veins of unspecified lower extremity with other complications; M79.604 Pain in right leg; M79.605 Pain in left leg
CPT/HCPCS: 93970

== ENCOUNTER → 2025-05-22 | Outpatient (CLI) | payer OTHER, SELFPAY ==
--- OUTSIDE RECORDS SUMMARY | 2025-05-22 06:28 | XMS RPT_ITS | CCD ---
Author Organization [facility] Care Team Providers Care Supply Chain Manager Name Role Phone Wellness Screen Unavailable Unavailable MICHELLE FERGUSON Unavailable Unavailable FILIBERTO KLEIN Unavailable Unavailable Dr. Filiberto Klein Primary Care Provider Dr. Filiberto Klein Referring Provider NAE Wiseman Attending Provider Dr. Juan Ponce Attending Provider Dr. Filiberto Klein Primary Care Provider Dr. Filiberto Klein Referring Provider NAE Singletary Attending Provider [phone] NAE Wiseman Attending Provider Dr. Filiberto Klein Primary Care Provider Dr. Filiberto Klein Referring Provider NAE Phelps Attending Provider [phone] NAE Phelps Referring Provider [phone] NAE Phelps Other Provider 1([facility])[phone] Samantha Hall Attending Provider Dr. Filiberto Klein MD Primary Care Provider [phone] Dr. Filiberto Klein MD Referring Provider Jessica Mcqueen Attending Provider Jessica Mcqueen Referring Provider Dr. Eric Javier MD Attending Provider Filiberto Klein Primary Care Unavailable Jessica Mann Attending Unavailable Filiberto Klein Referring Unavailable Filiberto Klein Primary Care Unavailable Eric Javier Attending Unavailable Jessica Mann Referring Unavailable Filiberto Klein Primary Care Unavailable Jessica Mann Referring Unavailable Jessica Mann Attending Unavailable Medications Current Medications Medication Drug Class(es) Dates Sig (Normalized) Sig (Original) spironolactone 25 mg oral tablet (2 sources) Aldosterone Antagonist Start: 02-09-2023 take 1 tablet by mouth once daily Spironolactone 25 mg tablet Active 25 mg PO DAILY February 09, 2023 12:00am Completed/Discontinued Medications Medication Drug Class(es) Dates Sig (Normalized) Sig (Original) amoxicillin 500 mg oral capsule (10 sources) Penicillin-class Antibacterial Start: 12-22-2021 End: 01-01-2022 take 2 capsules by mouth twice daily Amoxicillin 500 mg capsule Discontinued 1000 mg PO TWICE A DAY 40 December 22, 2021 12:00am December 31, 2021 12:00am January 01, 2022 12:05am Start: 12-22-2021 End: 01-01-2022 take 1000 mg by mouth twice daily Amoxicillin Discontinued 1000 MG PO TWICE A DAY 40 December 22, 2021 12:00am January 01, 2022 12:05am Start: 05-14-2021 End: 05-24-2021 take 2 capsules by mouth twice daily Amoxicillin 500 mg capsule Discontinued 1000 mg PO TWICE A DAY 40 May 14, 2021 1:00am May 23, 2021 1:00am May 24, 2021 1:01am Start: 05-14-2021 End: 05-24-2021 take 1000 mg by mouth twice daily Amoxicillin Discontinued 1000 MG PO TWICE A DAY 40 May 14, 2021 1:00am May 24, 2021 1:01am azithromycin 250 mg oral tablet (6 sources) Macrolide Antimicrobial Start: 08-28-2017 End: 09-07-2017 Azithromycin 250 mg tablet Discontinued 250 mg PO daily 11 August 28, 2017 12:00am September 06, 2017 12:00am September 07, 2017 12:06am Take 2 tabs once on day one then take one tablet once daily for the next 9 days. doxycycline hyclate 50 mg oral tablet (6 sources) Tetracycline-class Drug Start: 03-23-2020 End: 01-07-2021 take 1 tablet by mouth once daily Doxycycline Hyclate 50 mg tablet Discontinued 50 mg PO DAILY March 23, 2020 12:00am January 07, 2021 12:10pm Norgestimate-Ethiny l Estradiol (6 sources) Progestin, Estrogen Start: 08-28-2017 End: 03-23-2020 Norgestimate-Ethin yl Estradiol Discontinued PO August 28, 2017 1:10pm March 23, 2020 7:56am Start: 08-28-2017 End: 03-23-2020 Norgestimate-Ethinyl Estradi ol 0.25-35 mg-mcg tablet Discontinued PO August 28, 2017 12:00am March 23, 2020 7:56am Start: 08-28-2017 End: 03-23-2020 Norgestimate-Ethinyl Estradi ol Discontinued PO August 28, 2017 12:00am March 23, 2020 7:56am meclizine hydrochloride 25 mg oral tablet (3 sources) Antiemetic Start: 07-13-2022 End: 02-09-2023 take 1 tablet by mouth twice daily as needed Meclizine 25 mg tablet Discontinued 25 mg PO TWICE A DAY as needed for motion sickness July 13, 2022 1:00am February 09, 2023 2:15pm methylPREDNISolone 4 mg oral tablet (10 sources) Corticosteroid Start: 12-22-2021 End: 02-09-2023 take 1 tablet by mouth once Methylprednisolone (Medrol (Remberto)) 4 mg tablets,dose pack Discontinued 0 PO per package directions December 22, 2021 12:00am February 09, 2023 2:15pm PO PER PKG DIR Start: 08-28-2017 End: 09-02-2017 take 1 tablet by mouth once Methylprednisolone (Medrol (Remberto)) 4 mg tablets,dose pack Discontinued 4 mg PO per package directions 06 11August 28, 2017 12:00am September 01, 2017 12:00am September 02, 2017 12:11am 72 hr scopolamine 0.0139 mg/hr transdermal system (3 sources) Anticholinergic Start: 07-13-2022 End: 02-09-2023 Scopolamine Base 1 mg over 3 days patch 3 day Discontinued 1 NMA TD Every 3 Days as needed for motion sickness July 13, 2022 1:00am February 09, 2023 2:15pm Start: 07-13-2022 End: 02-09-2023 Scopolamine Base Discontinue d 1 PATCH TD Q3D 4 July 13, 2022 1:00am February 09, 2023 2:15pm Problems Active Problems Problem Classification Problem Date Documented Da te Episodic/Chronic Abdominal pain (6 sources) Right upper quadrant pain; Translations: [Right upper quadrant pain] 03-23-2020 Episodic Acute bronchitis (6 sources) Acute bronchitis; Translations: [Acute bronchitis, unspecified] 08-28-2017 Episodic Inflammation; infection of eye (except that caused by tuberculosis or sexually transmitteddisease) (6 sources) Toxic conjunctivitis; Translations: [Acute toxic conjunctivitis, right eye] 11-30-2018 Episodic Other diseases of veins and lymphatics (2 sources) Venous insufficiency of leg; Translations: [Venous insufficiency (chronic) (peripheral)] 10-23-2024 Episodic Other diseases of veins and lymphatics (1 source) Venous insufficiency (chronic) (peripheral); Translations: [Venous insufficiency (chronic) (peripheral)] Onset: 11-12-2024 Episodic Other gastrointestinal disorders (6 sources) Heartburn; Translations: [Heartburn] 03-23-2020 Episodic Other gastrointestinal disorders (6 sources) Diarrhea; Translations: [Diarrhea, unspecified] 01-07-2021 Episodic Other nervous system disorders (2 sources) Skin sensation disturbance; Translations: [Unspecified disturbances of skin sensation] 02-10-2023 Episodic Other nervous system disorders (1 source) Unspecified disturbances of skin sensation; Translations: [Disturbance of skin sensation] 02-09-2023 Episodic Other upper respiratory infections (20 sources) Acute maxillary sinusitis; Translations: [Acute maxillary sinusitis, unspecified] Episodic Residual codes; unclassified (2 sources) Pain, unspecified; Translations: [Pain, unspecified] Onset: 06-05-2018 Spondylosis; intervertebral disc disorders; other back problems (6 sources) Neck pain; Translations: [Cervicalgia] 02-09-2023 Episodic Unclassified (1 source) Onset: 01-30-2017 Varicose veins of lower extremity (2 sources) Venous varices; Translations: [Varicose veins of unspecified lower extremity with other complications] 10-23-2024 Episodic Past or Other Problems Problem Classification Problem Date Documented Da te Episodic/Chronic Unclassified (3 sources) of child 01-17-2022 Results Test Name Value Interpretation Reference Range Facility Venous Duplex US - Jamil Extre mon 11-06-2024 Venous Duplex US - Jamil Extrem [facility] [address] [place] [address] Venous Duplex US - Jamil Extrem 11/06/24 0804 MR#: [id number] Acct: [id number] Name: CAMILLA GARCIA Rep #: [id number] : 1985 39 From: Eric Javier MD Attending Dr: NAE Coburn Status: REG CLI Ordering Dr: Jessica Mann Date: 11/06/24 Location: [facility] Sex: F C Admitted: Reason For Study Reason For Study: Bilateral leg pain RIGHT LEFT CFV is compressible, spontaneous, phasic, competent CFV is compressible, spontaneous, phasic, competent, and demonstrates normal augmentation. and demonstrates normal augmentation. FV is compressible, spontaneous, phasic, competent FV is compressible, spontaneous, phasic, competent and demonstrates normal augmentation. and demonstrates normal augmentation. POP V is compressible, spontaneous, phasic, competent POP V is compressible, spontaneous, phasic, competent and demonstrates normal augmentation. and demonstrates normal augmentation. T/P Trunk is compressible. T/P Trunk is compressible. PTV is compressible. PTV is compressible. RT PerV is compressible. LT PerV is compressible. SFJ is INCOMPETENT and measures 0.76 cm. SFJ is INCOMPETENT and measures 0.62 cm. GSV proximal thigh measures 0.39 x 0.37 cm. GSV proximal thigh measures 0.45 x 0.47 cm. GSV at knee measures 0.33 x 0.34 cm. GSV at knee measures 0.34 x 0.33 cm. GSV is competent throughout. GSV INCOMPETENT throughout for greater than 0.5 SSV mid calf is competent and measures 0.11 x 0.10 seconds. cm. SSV mid calf is competent and measures 0.10 x 0.11 Procedure cm. This is a venous duplex using B-mode, color flow and Cluster of small varicose veins noted at the proximal spectral Doppler. lucas, unable to visualize origin. Exam performed in department. Patient was scanned in reverse Trendelenburg position during reflux assessment. VL/Venous Duplex US - Jamil Extrem Interpretation Summary Deep veins of the bilateral lower extremities are patent and compressible segmentally. There is no evidence of bilateral lower extremity deep vein thrombosis. The bilateral great saphenous veins appear patent and compressible segmentally. Positive for reflux in the right saphenofemoral junction. Positive for reflux in the left saphenofemoral junction, great saphenous vein throughout. Ordering Physician: Jessica Mann Referring Physician: Filiberto Klein Performed By: Dinorah Bangura RVT 11/06/24 1505 Date Eric Javier MD CC: NAE Coburn; Dr. Filiberto Klein MD Date Dictated: 11/06/24 0804 Date Transcribed: 11/06/24 1505 Department Administrator: Signed Normal [facility] Venous duplex ultrasound rep ortOrdered By: Eric Javier on 11-06-2024 US Vein [facility] [address] [place] [address]. [place] [address] Venous Duplex US - Jamil Extrem 11/06/24 0804 MR#: [id number] Acct: [id number] Name: CAMILLA GARCIA Rep #:[id number] : 1985 39 From: Eric Alejo Attending Dr: NAE Coburn Stat us: REG CLI Ordering Dr: Jessica Mann Date: Location: [facility] Sex: F C Admitted: Reason For Study Reason For Study: Bilateral leg pain RIGHT LEFT CFV is compressible, spontaneous, phasic, competent CFV is compressible, spontaneous, phasic, competent, and demonstrates normal augmentation. and demonstrates normal augmentation. FV is compressible, spontaneous, phasic, competent FV is compressible, spontaneous, phasic, competent and demonstrates normal augmentation. and demonstrates normal augmentation. POP V is compressible, spontaneous, phasic, competent POP V is compressible, spontaneous, phasic, competent and demonstrates normal augmentation. and demonstrates normal augmentation. T/P Trunk is compressible. T/P Trunk is compressible. PTV is compressible. PTV is compressible. RT PerV is compressible. LT PerV is compressible. SFJ is INCOMPETENT and measures 0.76 cm. SFJ is INCOMPETENT and measures 0.62 cm. GSV proximal thigh measures 0.39 x 0.37 cm. GSV proximal thigh measures 0.45 x 0.47 cm. GSV at knee measures 0.33 x 0.34 cm. GSV at knee measures 0.34 x 0.33 cm. GSV is competent throughout. GSV INCOMPETENT throughout for greater than 0.5 SSV mid calf is competent and measures 0.11 x 0.10 seconds. cm. SSV mid calf is competent and measures 0.10 x 0.11 Procedure cm. This is a venous duplex using B-mode, color flow and Cluster of small varicose veins noted at the proximal spectral Doppler. lucas, unable to visualize origin. Exam performed in department. Patient was scanned in reverse Trendelenburg position during reflux assessment. VL/Venous Duplex US - Jamil Extrem Interpretation Summary Deep veins of the bilateral lower extremities are patent and compressible segmentally. There is no evidence of bilateral lower extremity deep vein thrombosis. The bilateral great saphenous veins appearpatent and compressible segmentally. Positive for reflux in the right saphenofemoral junction. Positive for reflux in the left saphenofemoral junction, great saphenous vein throughout. Ordering Physician: Jessica Mann Referring Physician: Filiberto Klein Performed By: Dinorah Bangura RVT 11/06/24 1505 Date _ Eric Javier MD CC: NAE Coburn; Dr. Filiberto Klein MD ~ Date Dictated: 11/06/24 0804 Date Transcribed: 11/06/24 1505 Department Administrator: Signed [facility] Work Phone: MR/BMS.Rachael 10-23-2024 MR/BMS.BVS [facility] [address] [place] [address] OFFICE VISIT Date of Service: 10/23/24 MR#: [id number] Acct: [id number] Name: CAMILLA GARCIA Rep #: [id number] : 1985 Provider: NAE Coburn Age/Sex: 38/F Location: [facility] Status: Signed Intake Vital Signs 02/09/23 14:13 10/23/24 08:40 Height 5 ft 8 in Weight: 178 lb BP 111/72 Blood Pressure Location Lt brachial Position Sitting Respiration 14 Pulse 73 Pulse Source Monitor Temp 98.5 F Temp Source Temporal Pulse Oximetry (%) 97 Oxygen Delivery Method room air Intake Visit Reasons: Varicose veins Is patient in pain?: No Allergies No Known Allergies Allergy (Verified 10/23/24 08:42) Medications ???Medication ???Instructions ???Recorded ???Confirmed ???Type spironolactone 25 mg tablet 25 mg PO DAILY 02/09/23 10/23/24 H istory Is last menstrual period known: Yes Post menopausal: No Patient : No Have you fallen in the past year?: No PFSH Medical History Acute pharyngitis, unspecified Acute maxillary sinusitis, unspecified URI (upper respiratory infection) Heartburn Postprandial abdominal pain in right upper quadrant 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 She reports bilateral lower extremity symptoms but worse left than right. She experiences heaviness, fatigue, and tightness/aching which is worst at the end of the day. 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 She has had known venous insufficiency for many years, has seen other vein specialists and clinics in the past but ultimately never proceeded with any interventions. She has been wearing compression stockings daily for years and unfortunately has had continued progression of her symptoms. Currently, she is in non-measured compression stockings as her prior prescription stockings wore out. She notes there is a strong family history of venous insufficiency/varicose veins. She denies any history of VTE. ROS General General: Yes fatigue; No weight change, appetite, colon cancer, breast cancer or weakness HEENT HEENT: No difficulty swallowing, eye injury, eye surgery, swollen glands or hoarseness Endo Endocrine: No thyroid disease, diabetes mellitus, thyroid cancer, Hair loss, heat intolerance or cold intolerance Skin Skin: No rash or changing moles Musc Musculoskeletal: No back problems, arthritis, rheumatoid arthritis, gout or joint pain Cardio Cardiovascular: No murmur, pacemaker, heart disease, atrial fibrillation, high blood pressure, heart attack, heart stent, palpitations, shortness of breath with exertion or chest pain Psych Psychiatric: No depression, anxiety or hearing voices Resp Respiratory: No shortness of breath, No sleep apnea, No cough, No COPD, No asthma, No emphysema and No wheezing Gastro Gastrointestinal: Yes abdominal pain, No nausea or vomiting, Yes diarrhea, No constipation, No blood in stool, Yes acid reflux, No hemorrhoids, No ulcers, No gallbladder problem and No black,tarry stools Alexi Hematologic: No blood thinners, No blood disorders, No bleeding, No anemia and No blood clots Neuro Neurologic: No system reviewed and no additional complaints, except as documented, No as per HPI, No abnormal gait, No abnormal hearing, No abnormal movements, No abnormal speech, No behavioral changes, Yes burning sensations, No confusion, No convulsions, No disequilibrium, No dizziness, No localized weakness, No frequent falls, No headache(s), No lack of coordination, No loss of vision, No memory loss, No numbness, No other visual disturbances, No radicular pain, Yes restless legs, No sensory deficit, No syncope, No tingling, No tremor(s), No weakness and No other Exam Const General: cooperative, healthy appearing, comfortable and no acute distress Nutritional Appearance: average body habitus Orientation: (more content not included)... Normal [facility] Laboratory - Microbiology an d Antimicrobial susceptibilityon 12-08-2021 SARS-CoV-2 (COVID-19) RNA SONA+probe Ql (Unsp spec) Detected [facility] Work Phone: No Panel Informationon 12-08 Influenza Types A,B Rapid (Clinic) Not detected [facility] Work Phone: Laboratory - Microbiology an d Antimicrobial susceptibilityon 06-30-2021 SARS-CoV-2 (COVID-19) RNA SONA+probe Ql (Unsp spec) Not detected [facility] Work Phone: Laboratory - Microbiology an d Antimicrobial susceptibilityon 06-28-2021 SARS-CoV-2 (COVID-19) RNA SONA+probe Ql (Unsp spec) Not detected [facility] Work Phone: .Auto Diffon 06-05-2018 Ammonia mass conc (P) 0.80 10 3/mcL Normal 0.15-1.00 [facility] ([place]) Comment on above: Performed By: #### C KIMBERLY ELLIS ANEU ####[address] [place], [place] [address] Basophils Auto #/vol (Bld) 0.00 10 3/mcL Normal 0.00-0.19 [facility] [place] Comment on above: Performed By: #### C KIMBERLY ELLIS ANEU ####[address] [place], [place] [address] Basophils/100 WBC Auto (Bld) 0.7 % Normal 0.0-2.5 [facility] ([place]) Comment on above: Performed By: #### KIMBERLY SNYDER, ANEU ####[address] [place], [place] [address] Eosinophils Auto #/vol (Bld) 0.10 10 3/mcL Normal 0.00-0.40 [facility] ([place]) Comment on above: Performed By: #### C KIMBERLY ELLIS, ANEU ####[address] [place], [place] [address] Eosinophils/100 WBC Auto (Bld) 1.5 % Normal 0.0-7.0 [facility] ([place]) Comment on above: Performed By: #### KIMBERLY SNYDER, ANEU ####[address] [place], [place] [address] Lymphocytes Auto #/vol (Bld) 1.10 10 3/mcL Normal 0.77-3.85 [facility] ([place]) Comment on above: Performed By: #### KIMBERLY SNYDER, ANEU ####[address] [place], [place] [address] Lymphocytes/100 WBC Auto (Bld) 28.5 % Normal 10.0-50.0 [facility] ([place]) Comment on above: Performed By: #### KIMBERLY SNYDER, ANEU ####[address] [place], [place] [address] Monocytes/100 WBC Auto (Bld) 19.9 % High 1.7-13.0 [facility] ([place]) Comment on above: Performed By: #### KIMBERLY SNYDER, ANEU ####[address] [place], [place] [address] Neutrophils/100 WBC Auto (Bld) 49.4 % Normal 37.0-80.0 [facility] ([place]) Comment on above: Performed By: #### KIMBERLY SNYDER, ANEU ####[address] [place], [place] [address] .NEUABSon 06-05-2018 Neutrophil, Absolute 1.90 10 3/mcL Low 2.85-6.16 [facility] ([place]) Comment on above: Performed By: #### KIMBERLY SNYDER, ANEU ####[address] [place], [place] [address] CBCon 06-05-2018 Erythrocyte distribution width Auto Ratio (RBC) 13.0 % Normal 11.5-14.5 [facility] ([place]) Comment on above: Performed By: #### C KIMBERLY ELLIS, ANEU ####[address] [place] [id number] Hematocrit Auto Volume Fraction (Bld) 39.5 % Normal 37.0-47.0 [facility] ([place]) Comment on above: Performed By: #### KIMBERLY SNYDER, ANEU ####[address] [place], [place] [address] Hemoglobin mass conc (Bld) 13.5 G/dL Normal 12.0-16.0 [facility] ([place]) Comment on above: Performed By: #### KIMBERLY SNYDER, ANEU ####[address] [place], [place] [address] MCH Auto Entitic mass (RBC) 31.5 pg High 27.0-31.2 [facility] ([place]) Comment on above: Performed By: #### KIMBERLY SNYDER, ANEU ####[address] [place], [place] [address] MCHC Auto mass conc (RBC) 34.2 G/dL Normal 33.0-37.0 [facility] ([place]) Comment on above: Performed By: #### C KIMBERLY ELLIS, ANEU ####[address] [place], [place] [address] MCV Auto Entitic volume (RBC) 92.0 fL Normal 80.0-94.0 [facility] ([place]) Comment on above: Performed By: #### KIMBERLY SNYDER, ANEU ####[address] [place], [place] [address] Platelet mean volume Auto Entitic volume (Bld) 8.9 fL Normal 7.4-10.4 [facility] ([place] Comment on above: Performed By: #### C KIMBERLY ELLIS, ANEU ####[address] [place], [place] [address] Platelets Auto #/vol (Bld) 202 10 3/mcL Normal 130-400 [facility] ([place] Comment on above: Performed By: #### KIMBERLY SNYDER, ANEU ####[address] [place], [place] [address] RBC Auto #/vol (Bld) 4.29 10 6/mcL Normal 4.20-5.40 [facility] ([place] Comment on above: Performed By: #### KIMBERLY SNYDER, JENNIFER ####[address] [place], [place] [address] WBC Auto #/vol (Bld) 3.90 10 3/mcL Low 4.60-10.80 [facility] ([place] Comment on above: Performed By: #### KIMBERLY SNYDER, ANEU ####[id number] [place], [place] [address] GLUon 01-30-2017 Glucose mass conc 87 mg/dL Normal 70-100 [facility] Comment on above: Result Comment: 70-1 00-Normal Fasting; 185-937-Fmiytavc Fasting; greaterthan 126 on more than one result-Diabetes. ADA guidelines Performed By: #### L 500.04010, L500.47758 ####[facility] [id number] [place], [place] [address]Is# [phone] LIPIDon 01-30-2017 Cholesterol 139 mg/dL Normal 0-199 [facility] Comment on above: Performed By: #### L 500.72144, L500.68693 ####[facility] [id number] [place], [place] [address]Kz# [phone] HDL Cholesterol 84 mg/dL Normal GREATER [place] 40 [facility] Comment on above: Result Comment: [place] ents receiving Metamizole prior to venipuncture, mayhave falsely depressed results. Performed By: #### L [id number], [id number] ####[facility] [id number] [place], [place] [address]Sg# [phone] LDL Cholesterol 43 MG/DL Normal 0-129 [facility] Comment on above: Result Comment: ___C HOLESTEROL/HDL RATIO RISK___ CHD RISK = Total CHOL LDL HDL (CHOL/HDL) ----Recommended <200 <130 >35 <3.4 Juvencio rderline 200-239 130-159 3.4-4.99 --High >240 >160 >5.0 Performed By: #### L 500.14089, [id number] ####[facility] [id number] [place], [place] [address]Co# [phone] Triglyceride 61 mg/dL Normal 30-149 [facility] Comment on above: Result Comment: [place] ents receiving either N-Acetylcysteine (NAC) orMetamizole prior to venipuncture, may have falsely depressedresults. Performed By: #### L 500.14499, L500.58152 ####[facility] [id number] [place], [place] [address]Jz# [phone] Vital Signs Date Time Vital Sign Value Performing Clinician Sonja vickers 10-23-2024 08:40-0400 Body temperature 98.5 [degF] Dr. Filiberto Klein MD Work Phone: [facility] 10-23-2024 08:40-0400 Body weight 80.[address] Filiberto Klein MD Work Phone: [facility] 10-23-2024 08:40-0400 Diastolic blood pressure 72 mm[Hg] Dr. Filiberto Klein MD Work Phone: [facility] 10-23-2024 08:40-0400 Heart rate 73 /min Dr. Filiberto Klein MD Work Phone: [facility] 10-23-2024 08:40-0400 Respiratory rate 14 /min Dr. Filiberto Klein MD Work Phone: [facility] 10-23-2024 08:40-0400 SaO2% (BldA) [Mass fraction] 97 % Dr. Filiberto Klein MD Work Phone: [facility] 10-23-2024 08:40-0400 Systolic blood pressure 111 mm[Hg] Dr. Filiberto Klein MD Work Phone: [facility] 02-09-2023 14:13-0400 Body height 172.[address] Filiberto Klein Work Phone: [facility] 02-09-2023 14:13-0400 Body mass index (BMI) [Ratio] 26.7 kg/m2 Dr. Filiberto Klein Work Phone: [facility] 02-09-2023 14:13-0400 Body weight 79.[address] Filiberto Klein Work Phone: [facility] 12-22-2021 06:42-0400 Body temperature 98.2 [degF] Dr. Filiberto Klein Work Phone: [facility] Work Phone: 12-22-2021 06:42-0400 Diastolic blood pressure 68 mm[Hg] Dr. Filiberto Klein Work Phone: [facility] Work Phone: 12-22-2021 06:42-0400 Heart rate 76 /min Dr. Filibreto Klein Work Phone: [facility] Work Phone: 12-22-2021 06:42-0400 Respiratory rate 14 /min Dr. Filiberto Klein Work Phone: [facility] Work Phone: 12-22-2021 06:42-0400 SaO2% (BldA) [Mass fraction] 98 % Dr. Filiberto Klein Work Phone: [facility] Work Phone: 12-22-2021 06:42-0400 Systolic blood pressure 118 mm[Hg] Dr. Filiberto Klein Work Phone: [facility] Work Phone: 05-14-2021 13:18-0500 Body temperature 98.5 [degF] Dr. Filiberto Klein Work Phone: [facility] Work Phone: 05-14-2021 13:18-0500 Diastolic blood pressure 60 mm[Hg] Dr. Filiberto Klein Work Phone: [facility] Work Phone: 05-14-2021 13:18-0500 Heart rate 80 /min Dr. Filiberto Klein Work Phone: [facility] Work Phone: 05-14-2021 13:18-0500 Respiratory rate 14 /min Dr. Filiberto Klein Work Phone: [facility] Work Phone: 05-14-2021 13:18-0500 SaO2% (BldA) [Mass fraction] 99 % Dr. Filiberto Klein Work Phone: [facility] Work Phone: 05-14-2021 13:18-0500 Systolic blood pressure 100 mm[Hg] Dr. Filiberto Klein Work Phone: [facility] Work Phone: 03-26-2020 05:47-0400 Body mass index (BMI) [Ratio] 25.6 kg/m2 Dr. Filiberto Klein Work Phone: [facility] Work Phone: Encounters Encounter Date Encounter Type Care Provider Facility Start: 11-06-2024 Non-patient / Non-visit Dr. Eric mathis MD -[facility] Start: 11-06-2024 End: 11-06-[address] Filiberto Klein MD Work Phone: [facility] Work Phone: Start: 11-06-2024 End: 11-06-2024 Patient encounter procedure Jessica SONI -Cardiovascular Services Work Phone: Start: 11-06-2024 End: 11-06-2024 ambulatory Filiberto Klein Facility:[facility] Start: 10-23-2024 End: 10-23-2024 Patient encounter procedure Jessica SONI -[facility] Work Phone: Start: 10-23-2024 End: 10-23-2024 ambulatory Filiberto Klein Facility:[facility] Start: 03-08-2023 Non-patient / Non-visit Dr. Allison Work Phone: [facility] Start: 03-08-2023 End: 03-08-[address] Filiberto Klein Work Phone: [facility] Work Phone: Start: 03-08-2023 End: 03-08-[address] Filiberto Klein Work Phone: [facility]-Pulmonary Services/Neurology Work Phone: Start: 02-09-2023 End: 02-09-[address] Filiberto Klein Work Phone: [facility] Work Phone: Start: 12-22-2022 End: 12-22-2022 ambulatory [facility] Work Phone: Start: 12-22-2022 End: 12-22-2022 Discharged Recurring [facility]-Physical Therapy Work Phone: Start: 12-22-2021 End: 12-22-[address] [facility] Start: 12-22-2021 End: 12-22-[address] Filiberto Klein Work Phone: [facility] Start: 12-08-2021 End: 12-08-[address] Filiberto Klein Work Phone: [facility] Start: 09-03-2021 End: 09-03-[address] [facility]iberto Klein [facility] Start: 06-30-2021 End: 06-30-[address] Filiberto Klein Work Phone: [facility] Start: 06-28-2021 End: 06-28-[address] Filiberto Klein Work Phone: [facility] Start: 06-14-2021 End: 06-14-[address] Filiberto Klein Work Phone: [facility]-Massage Therapy, [facility] Start: 06-02-[address] Earl Klein Work Phone: [facility]-Physical Therapy Start: 05-14-2021 End: 05-14-[address] Filiberto Klein Work Phone: [facility] Start: 06-05-2018 End: 06-10-2018 [facility] Start: 01-30-2017 Ambulatory Wellness Screen Facilit y:[facility] Procedures Date Procedure Procedure Detail Performing Clinician Start: 09-03-2021 X-ray of cervical spine Dr. Filiberto Klein Work Phone: Bacteria identificat ion test Dr. Filiberto Klein Work Phone: Plan of Treatment Date Care Activity Detail Author MR Cervical spine [facility] Immunizations Immunization Date Immunization Notes Care Provider Fa cili 05-13-2024 influenza, seasonal, injectable, preservative free Dr. Filiberto Klein MD Work Phone: [facility] 04-24-2023 influenza, injectabl e, quadrivalent, preservative free Dr. Filiberto Klein MD Work Phone: [facility] 05-09-2022 influenza, injectabl e, quadrivalent, preservative free Dr. Filiberto Klein Work Phone: [facility] 05-09-2022 influenza, seasonal, injectable [facility] 05-04-2021 influenza, injectabl e, quadrivalent, preservative free Dr. Filiberto Klein Work Phone: [facility] 05-04-2021 influenza, seasonal, injectable Dr. Filiberto Klein Work Phone: [facility] 07-21-2020 Covid (Moderna) Dr. Filiberto dueñas Work Phone: [facility] 06-23-2020 Covid (Moderna) Dr. Filiberto dueñas Work Phone: [facility] 04-23-2020 influenza, injectabl e, quadrivalent, preservative free Dr. Filiberto Klein Work Phone: [facility] 04-23-2020 influenza, seasonal, injectable Dr. Filiberto Klein Work Phone: [facility] 05-01-2019 influenza, injectabl e, quadrivalent, preservative free Dr. Filiberto Klein Work Phone: [facility] 05-01-2019 influenza, seasonal, injectable Dr. Filiberto Klein Work Phone: [facility] 05-08-2018 influenza, injectabl e, quadrivalent, preservative free Dr. Filiberto Klein Work Phone: [facility] 05-08-2018 influenza, seasonal, injectable Dr. Filiberto Klein Work Phone: [facility] Payers Date Payer Category Payer Self-pay [id number] 2024 Unknown [id number] 2018 Unknown [id number] 1985 Unknown [id number] Unknown [facility] [id number] Unknown [id number] Unknown [id number] Unknown [id number] Social History Date Type Detail Facility Start: 05-14-2021 End: 02-09-2023 Tobacco smoking status NHIS Unknown if ever smoked [facility] Start: 03-24-2020 Non-smoker [facility] Start: 1985 Sex Assigned At Female W [facility] Start: 02-09-2023 Tobacco smoking stat us NHIS Never smoked tobacco (finding) [facility] Evaluation note 10-23-2024 Note Date & Type Note Facility 10-23-2024 Evaluation note Diagnosis Onset Date Resolution Symptomatic varicose veins acute October 23, 2024 8: 25am Venous insufficiency of both lower extremities acute October 23, 2024 8:25am [facility] Work Phone: Procedure note 03-08-2023 Note Date & Type Note Facility 03-08-2023 Procedure note [facility] Discharge summary 01-05-2023 Note Date & Type Note Facility 01-05-2023 Discharge summary Note Date/Time January 05, 2023 7:32 am [facility] Physical Therapy [facility] [address] [place] [address] / REHABILITATION SERVICES DISCHARGE SUMMARY MR#: [id number] Acct: [id number] Name: CAMILLA GARCIA Rep #: [id number] 01 : 1985 37 From: Mckay Velazco Referring Dr.: Dr. Adrian Clemente DO Status: REG RCR Insurance: [employer] (roll.to)/[facility] Discharge Summary D/C summary: It has been my pleasure to treat CAMILLA GARCIA referred by Dr. Adrian Clemente DO, with the diagnosis of L thoracic pain for a total of 7 visit(s). Discharge Date: 12/22/22 Please see the following information for a summary of their discharge status. Subjective Subjective: Pt. reports overall not much change. She has some relief with DN, but temporarily. Pt. is now having B UE go numb upto x3 per night. Pt. still hasthe pain at her L shoulder blade region. She is tight through bilateral scalenesand SCM as well. Pain L scapular region: Pain Intensity (Out of 10): 3 Objective Objective/Function: Pt. has good strength throughout BUEs, some weakness with her periscapular musculature, but not severe. Pt. does have some signs of possible TOS. this does not fit perfectly unto her symptoms, but there are some signs. ROM: Pt. has close to full ROM of her cervical spine, pain with L rotation, but more of a tightness than a pain. At this point in time I would suggest that she return to her physician to determine best course of action. Pt. consents. Goals Goal 1:: LTG: Pt. to be I with HEP. Goal Progress: Goal Met Goal 2:: STG: Pt. to sleep throughout the night without increase in tingling in LUE. Goal Progress: Not Progressing Goal 3:: LTG: Pt. to have no issues with all work and recreational activities. Goal Progress: Not Progressing Goal 4:: LTG: pt. demonstrate good postural endurance throughout therapy session. Goal Progress: Progressing Plan Plan: DC to [facility] and to follow up with physician to determine best course of action. D/C Information Discharge Comments: Pt. was treated with manual, stretching, DN, mobilization and strengthening. She has not made great progress with her symptoms. When she had time off work she did better, symptoms resumed with returning to work. B UE are going numb at night pretty frequently. I would like her to follow up with physician about this. Pt. to be DC from PT at this point in time and instructed to follow back up with physician. d/c sentence: If there are questions or concerns regarding this patient's physical therapy, please feel free to call me at [phone]. Thank you for the referral of thispatient. Sincerely, Mckay Mason, DPT Balance/Gait/Functional tests Balance/Special Test Scores Oswestry Neck Score: 13 <Electronically signed by Mckay Mason DPT> 01/05/23 0732 CC: Dr. Adrian Clemente DO; Dr. Filiberto Klein MD ~ CLS Signed [facility] Work Phone: Chief complaint+Reason for visit Narrative Note Date & Type Note Facility Chief complaint+Reason for visit Narrative Reason for Visit Acute maxillary sinusitis, unspecified URI (upper respiratory infection) [facility] Work Phone: Evaluation note Note Date & Type Note Facility Evaluation note Diagnosis Onset Date Acute maxillary sinusitis, unspecified acute URI (upper respiratory infection) acute [facility] Work Phone: Evaluation note Note Date & Type Note Facility Evaluation note No assessment information availa ble [facility] Work Phone: Evaluation note Note Date & Type Note Facility Evaluation note Diagnosis Onset Date Acute maxillary sinusitis, unspecified acute Acute pharyngitis, unspecified acute [facility] Work Phone: Evaluation note Note Date & Type Note Facility Evaluation note Diagnosis Onset Date Cervical radiculopathy acute Neck pain on left side acute Sensation disturbance of skin acute [facility] Work Phone: Reason for referral (narrative) Note Date & Type Note Facility Reason for referral (narrative) No reason for referral information available [facility] Work Phone: Summary Purpose Family History No Family History Records Found Relationship Condition Age at Onset Recorded Date/T marta Not Specified Cerebrovascular accident (CVA) Unknown grandmother Hypertension Unknown Cardiac disease Unknown Diabetes mellitus Unknown mother Disorder of thyroid Unknown Advance Directives No Advanced Directives Records Found Advance Directive Response Recorded Date/ Time Living Will No March 31 2:46pm Power of Converter Skimmer No March 31, 2021 2:46pm Chief Complaint and Reason for Visit Chief Complaint CHRONIC L NECK PAIN Chief Complaint CHRONIC L NECK PAIN COVID TEST/[facility] EMP SORE THROAT/LEFT EAR Reason for Visit Acute maxillary sinu sitis, unspecified Acute pharyngitis, unspecified Chief Complaint L SIDED THORACIC HECTOR K PN/RX HERE Chief Complaint L SIDED THORACIC HECTOR K PN/RX HERE THORACIC SPINE LUE RADICULAPATHY, LEFT NECK PAIN LUE RADICULAPATHY, LEFT NECK PAIN Reason for Visit Cervical radiculopat hy Neck pain on left side Sensation disturbance of skin Chief Complaint Admit Date Varicose veins October 23, 2024 8:25am LEG PAIN November 06, 2024 7:54a m Reason for Visit Admit Date Symptomatic varicose veins October 23, 2024 8:25am Venous insufficiency of both lower extre mities October 23, 2024 8:25am Additional Source Comments INFORMATION SOURCE (unrecogn ized section and content) DATE CREATED AUTHOR 12/13/2017 [facility] Maria Esther Gil DATE CREATED AUTHOR AUTHOR'S ORGANIZ ATION 06/12/2018 [facility] ([place]) DATE CREATED AUTHOR AUTHOR'S ORGANIZ ATION 11/23/2024 [facility] Goals (unrecognized section and content) Goals may be documented in a n alternate sectionGoals may be documented in an alternate sectionGoals may be documented in an alternate sectionGoals may be documented in an alternate sectionGoals may be documented in an alternate sectionGoals may be documented in an alternate section Care Teams (unrecognized sec tion and content) Team Status: Active Member Role Status Dates Dr. Filiberto Klein MD Family Provider Active Dr. Filiberto Klein MD Primary Care Provider Active Team Status: Inactive Member Role Status Dates Dr. Filiberto Klein MD Primary Care Provider Active Dr. Adrian Clemente DO Attending Provider, Referring Pr ovider Active Team Status: Inactive Member Role Status Dates Dr. Filiberto Klein MD Primary Care Provider, Referrin g Provider Active NAE Flores Attending Provider Active Team Status: Active Member Role Status Dates Dr. Filiberto Klein MD Primary Care Provider Active NAE Flores Referring Provider, Other Provider Active Dr. Samantha Hall MD Attending Provider Active Team Status: Inactive Member Role Status Dates Dr. Filiberto Klein MD Primary Care Provider Active NAE Flores Attending Provider, Referring Prov ider Active Team Status: Active Member Role Status Dates Dr. Filiberto Klein MD Primary Care Provider Active Team Status: Inactive Member Role Status Dates Dr. Filiberto Klein MD Primary Care Provider Active Start: October 23, 2024 End: October 23, 2024 Dr. Filiberto Klein MD Referring Provider Active Start: October 23, 2024 End: October 23, 2024 NAE Coburn Attending Provider Active Star t: October 23, 2024 End: October 23, 2024 Team Status: Inactive Member Role Status Dates Dr. Filiberto Klein MD Primary Care Provider Active Start: November 06, 2024 End: November 06, 2024 NAE Coburn Attending Provider Active Star t: November 06, 2024 End: November 06, 2024 NAE Coburn Referring Provider Active Star t: November 06, 2024 End: November 06, 2024 Team Status: Active Member Role Status Dates Dr. Filiberto Klein MD Primary Care Provider Active Start: November 06, 2024 Dr. Eric Javier MD Attending Provider Active S tart: November 06, 2024 FOR RECORDS PERTAINING TO PATIENTS WHO ARE OR HAVE BEEN ENROLLED IN A CHEMICAL DEPENDENCY/SUBSTANCEABUSE PROGRAM, SOME INFORMATION MAY BE OMITTED. This clinical summary was aggregated from multiple sources. Caution should be exercised in using it in the provision of clinical care. This summary normalizes information from multiple sources, and as a consequence, information in this document may materially change the coding, format and clinical context of patient data. In addition, data may be omitted in some cases. CLINICAL DECISIONS SHOULD BE BASED ON THE PRIMARY CLINICAL RECORDS. [facility]. provides no warranty or guarantee of the accuracy or completeness of information in this document.
[2025-05-22 07:50] LABS: Hematocrit 40.2 % (37-47); Hemoglobin 13.6 g/dL (12.0-15.0); Immature Granulocytes Count 0.010 X10^3/uL (0.0-0.0); Mean Corp Hgb Conc 33.8 g/dL (32-36); Mean Corpuscular Volume 92.8 fL (81-99); Mean Platelet Vol. 10.5 fl (6.2-12.0); NRBC Flagged by Analyzer 0 % (0-5); Platelet Count 256 K/mm3 (150-450); RBC Distribution Width CV 12.3 % (11.6-14.6); RBC Distribution Width SD 42.4 fl (35.1-43.9); Red Blood Count 4.33 M/mm3 (4.2-5.4); White Blood Count 5.6 K/mm3 (4.4-11.0)
[2025-05-22 09:01] LABS: Follicle Stimulating Hormone 5.2 mIU/mL; Free T3 3.8 pg/mL (2.18-3.98); Vitamin B12 445 pg/mL (180-914); Vitamin D,25 Hydroxy 33.8 ng/mL (30-100)
[2025-05-23 04:07] LABS: PROGESTERONE 0.2 ng/mL (.)
== END | disposition home or self-care (01) ==
PROVIDERS: PCP Family Medicine; Referring Provider Nurse Practitioner Women's Health; Visit Provider Nurse Practitioner Women's Health
DX: E03.8 Other specified hypothyroidism (principal); E28.8 Other ovarian dysfunction; R53.81 Other malaise; E55.9 Vitamin D deficiency, unspecified
CPT/HCPCS: 36415; 82306; 82607; 82627; 82670; 83001; 83002; 84144; 84403; 84439; 84443; 84481; 85025; 82626